=== PATIENT | female | born 1970 | race Caucasian/White ===

== ENCOUNTER 2016-10-14 06:46 | Emergency (ER) | payer OTHER ==
[~2016-10-14 06:46] MED LIST: AMBIEN5 MG PO; COZAAR25 MG PO; FLUOXETINE HCL20 MG PO; GLUCOSAMINE500 M1 PO; HYDROCHLOROTH12.5 MG PO; IRON325 MG PO; MAGNESIUM400 M1 PO; NORCO1 TA1 PO; SIMVASTATIN20 MG PO; VALTREX500 MG PO
--- NOTE | 2016-10-14 08:02 | DIAGNOSTIC IMAGING REPORT ---
PROCEDURE: XR HIP 2VW W W/O AP PELVIS-LT INDICATION: PAIN IN JOINT TECHNIQUE: AP view of the pelvis and hips with lateral view of the left hip. COMPARISON: None. FINDINGS: LEFT HIP: No fracture or dislocation. Normal joint space. PELVIS: Mild right hip joint space narrowing. No suspicious osseous lesions. Soft tissues are unremarkable IMPRESSION: 1. Negative left hip 2. Mild right hip degenerative changes
--- NOTE | 2016-10-14 08:30 | ED NURSING NOTES ---
Clinical Report - Nurses [facility] [place] [address] 10/14/2016 6:49 Patient: UGO NIXON TRIAGE Triage time 06:59 Oct 14 2016. Acuity: LEVEL 3. Chief Complaint: LEFT LOWER EXTREMITY PAIN. Location of symptoms- left hip. 07:05 10/14/16. SEPSIS SCREEN: Sepsis Screen: negative. Negative (no infection suspected/documented). NICHELLE COMA SCORE: Nichelle Coma Scale: 15- eyes open spontaneously (4); best verbal response- oriented x 4 (5); best motor response- obeys commands (6). --07:05 Ely Macias 06:59 10/14/16. BP: 146/91. HR: 77. RR: 20. O2 saturation: 98% on room air. Pain level now: 05/18. --07:05 Ely Macias. Weight: 65.7 kg stated. Height/Length: 62 inches Per Patient. BMI: 26.5. --07:03 Ely Macias. Medications Losartan Potassium Oral. --07:02 Ely Macias FLUoxetine HCl Oral. --07:02 Ely Macias Elmethylpholate . --07:02 Ely Macias Valclocyclovir . --07:03 Ely Macias. Medication/allergy information source: the patient. --07:05 Ely Macias. Allergies No Known Drug Allergy. --07:02 Ely Macias. History Arrived by private vehicle. Historian: patient. Accompanied by family. Primary physician (iraj mendoza). An injury may have occurred. This occurred today. ( Patient states she woke from sleep with sharp pain in her left hip. She states she had some pain in that hip in the past but this is new pain.). 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 PAST MEDICAL HX: Immunizations: up-to-date. The patient has had a hysterectomy. SOCIAL HX: Never smoker. Occasional alcohol use. History of drug use: marijuana. No infectious disease exposure. ABUSE ASSESSMENT: No report of abuse. FALL RISK ASSESSMENT: Fall risk assessment completed. No fall risk identified. NUTRITIONAL RISK ASSESSMENT: The nutritional risk assessment revealed no deficiencies. FUNCTIONAL ASSESSMENT: Functional assessment: no impairments noted. LEARNING NEEDS ASSESSMENT: The learning needs assessment revealed no barriers. SKIN INTEGRITY ASSESSMENT: Skin integrity risk assessment completed. No skin integrity risk identified. --07:05 Ely Macias. PROBLEMS: Anxiety disorder. Depression. Hyperlipidemia. Hypertension. --07:03 Ely Macias. ADDITIONAL SURGERIES: Appendectomy. . Hysterectomy. Laparoscopy. --07:03 Ely Macias. Interventions ID band on patient. To treatment room. --07: Ely Macias. PHYSICAL ASSESSMENT 07:10/14/16. To room via wheelchair. GENERAL / NEURO / PSYCH: Oriented X 4. Alert. Appears in no acute distress. EXTREMITIES: Extremity pulses are within normal limits. No lower extremity edema. SKIN: Skin is warm and dry. --07:05 Ely Macias EXTREMITIES: Limited ROM present (in left hip due to pain). No lower extremity edema. SKIN: Skin intact. Skin is warm and dry. --07:06 Ely Macias. NURSING PROGRESS NOTES 07:10/14/16. Cold pack applied. Patient gowned. Warming measures: blanket applied. Reassurance given to the patient. Two patient identifiers checked. Call light placed in reach. Side rails up x 1. Bed placed in lowest position. Brakes of bed on. Patient ready for evaluation- chart flagged. --07:06 Ely Macias 07:10/14/16. Care transferred and report received. --07:07 Roshni Hartmann R.N. 07:25 10/14/2016 Toradol (Ketorolac Tromethamine) IM 60 mg given. Allergies verified and confirmed 5 rights. --07:25 Roshni Hartmann R.N. 08:17 10/14/2016 Carisoprodol PO 350 mg given. Confirmed 5 rights and sedative warning given to the patient and patient's family. --08:17 Roshni Hartmann R.N. DISPOSITION / DISCHARGE Departure time: 0836. Condition at departure: improved. No learning barriers present. Discharge instructions provided and reviewed with the patient and spouse. Reviewed medication(s) information. Prescription(s) given to the patient. Reviewed referral to family practice for followup. The patient was discharged home and accompanied by spouse. She left the Emergency Department ambulatory and via private vehicle. Spouse driving. FALL RISK ASSESSMENT: Fall risk assessment completed. No fall risk identified. --08:39 Roshni Hartmann R.N. 08:35 10/14/16. BP: 145/82. HR: 66. RR: 18. O2 saturation: 99%. Temp: deferred. Pain level now: 02/15. --08:39 Roshni Hartmann R.N. Locked/Released at 10/14/2016 8:40 by Roshni Hartmann R.N.
--- NOTE | 2016-10-14 08:30 | ED NURSING NOTES ---
Clinical Report - Nurses [facility] [place] [address] 10/14/2016 6:49 Patient: UGO NIXON TRIAGE Triage time 06:59 Oct 14 2016. Acuity: LEVEL 3. Chief Complaint: LEFT LOWER EXTREMITY PAIN. Location of symptoms- left hip. 07:05 10/14/16. SEPSIS SCREEN: Sepsis Screen: negative. Negative (no infection suspected/documented). NICHELLE COMA SCORE: Nichelle Coma Scale: 15- eyes open spontaneously (4); best verbal response- oriented x 4 (5); best motor response- obeys commands (6). --07:05 Ely Macias 06:59 10/14/16. BP: 146/91. HR: 77. RR: 20. O2 saturation: 98% on room air. Pain level now: 05/18. --07:05 Ely Macias. Weight: 65.7 kg stated. Height/Length: 62 inches Per Patient. BMI: 26.5. --07:03 Ely Macias. Medications Losartan Potassium Oral. --07:02 Ely Macias FLUoxetine HCl Oral. --07:02 Ely Macias Elmethylpholate . --07:02 Ely Macias Valclocyclovir . --07:03 Ely Macias. Medication/allergy information source: the patient. --07:05 Ely Macias. Allergies No Known Drug Allergy. --07:02 Ely Macias. History Arrived by private vehicle. Historian: patient. Accompanied by family. Primary physician (iraj mendoza). An injury may have occurred. This occurred today. ( Patient states she woke from sleep with sharp pain in her left hip. She states she had some pain in that hip in the past but this is new pain.). 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 PAST MEDICAL HX: Immunizations: up-to-date. The patient has had a hysterectomy. SOCIAL HX: Never smoker. Occasional alcohol use. History of drug use: marijuana. No infectious disease exposure. ABUSE ASSESSMENT: No report of abuse. FALL RISK ASSESSMENT: Fall risk assessment completed. No fall risk identified. NUTRITIONAL RISK ASSESSMENT: The nutritional risk assessment revealed no deficiencies. FUNCTIONAL ASSESSMENT: Functional assessment: no impairments noted. LEARNING NEEDS ASSESSMENT: The learning needs assessment revealed no barriers. SKIN INTEGRITY ASSESSMENT: Skin integrity risk assessment completed. No skin integrity risk identified. --07:05 Ely Macias. PROBLEMS: Anxiety disorder. Depression. Hyperlipidemia. Hypertension. --07:03 Ely Macias. ADDITIONAL SURGERIES: Appendectomy. . Hysterectomy. Laparoscopy. --07:03 Ely Macias. Interventions ID band on patient. To treatment room. --07: Ely Macias. PHYSICAL ASSESSMENT 07:10/14/16. To room via wheelchair. GENERAL / NEURO / PSYCH: Oriented X 4. Alert. Appears in no acute distress. EXTREMITIES: Extremity pulses are within normal limits. No lower extremity edema. SKIN: Skin is warm and dry. --07:05 Ely Macias EXTREMITIES: Limited ROM present (in left hip due to pain). No lower extremity edema. SKIN: Skin intact. Skin is warm and dry. --07:06 Ely Macias. NURSING PROGRESS NOTES 07:10/14/16. Cold pack applied. Patient gowned. Warming measures: blanket applied. Reassurance given to the patient. Two patient identifiers checked. Call light placed in reach. Side rails up x 1. Bed placed in lowest position. Brakes of bed on. Patient ready for evaluation- chart flagged. --07:06 Ely Macias 07:10/14/16. Care transferred and report received. --07:07 Roshni Hartmann R.N. 07:25 10/14/2016 Toradol (Ketorolac Tromethamine) IM 60 mg given. Allergies verified and confirmed 5 rights. --07:25 Roshni Hartmann R.N. 08:17 10/14/2016 Carisoprodol PO 350 mg given. Confirmed 5 rights and sedative warning given to the patient and patient's family. --08:17 Roshni Hartmann R.N. DISPOSITION / DISCHARGE Departure time: 0836. Condition at departure: improved. No learning barriers present. Discharge instructions provided and reviewed with the patient and spouse. Reviewed medication(s) information. Prescription(s) given to the patient. Reviewed referral to family practice for followup. The patient was discharged home and accompanied by spouse. She left the Emergency Department ambulatory and via private vehicle. Spouse driving. FALL RISK ASSESSMENT: Fall risk assessment completed. No fall risk identified. --08:39 Roshni Hartmann R.N. 08:35 10/14/16. BP: 145/82. HR: 66. RR: 18. O2 saturation: 99%. Temp: deferred. Pain level now: 02/15. --08:39 Roshni Hartmann R.N. Locked/Released at 10/14/2016 8:40 by Roshni Hartmann R.N.
--- NOTE | 2016-10-14 08:30 | ED ORDER SUMMARY ---
..... Patient: UGO NIXON OrderSheet [facility] VisitID: [id number] [place] [address] 46y, F Registration Date/Time: 10/14/2016 ORDER SHEET Weight: 65.7 kg (stated) Allergies: No Known Drug Allergy GENERAL ORDERS: Hip 2V Left w AP Pelvis Urgent (07:05 10/14/2016 Marilee ALSTON) (Ack 7:06 Rahel) (7:25 LSullivan R.N.) MEDICATION ORDERS: Toradol IM 60 mg (NOW) (07:04 10/14/2016 Marilee ALTSON) (Ack 7:06 Han) (7:25 LSullivan R.N.) Carisoprodol PO 350 mg (NOW) (08:17 10/14/2016 LSullivan R.N. verbal order read back to Marilee ALSTON) (8:17 LSullivan R.N.) IV FLUIDS: ORDER SHEET NOTES: [Electronically signed by Roshni Hartmann R.N. (08:40 10/14/2016)] [Electronically signed by Foster Brown MD (20:43 10/16/2016)] [Electronically locked/signed by Roshni Hartmann R.N. (08:40 10/14/2016)]
--- NOTE | 2016-10-14 08:30 | ED ORDER SUMMARY ---
..... Patient: UGO NIXON OrderSheet [facility] VisitID: [id number] [place] [address] 46y, F Registration Date/Time: 10/14/2016 ORDER SHEET Weight: 65.7 kg (stated) Allergies: No Known Drug Allergy GENERAL ORDERS: Hip 2V Left w AP Pelvis Urgent (07:05 10/14/2016 Marilee ALSTON) (Ack 7:06 Rahel) (7:25 LSullivan R.N.) MEDICATION ORDERS: Toradol IM 60 mg (NOW) (07:04 10/14/2016 Marilee ALSTON) (Ack 7:06 Han) (7:25 LSullivan R.N.) Carisoprodol PO 350 mg (NOW) (08:17 10/14/2016 LSullivan R.N. verbal order read back to Marilee ALSTON) (8:17 LSullivan R.N.) IV FLUIDS: ORDER SHEET NOTES: [Electronically signed by Roshni Hartmann R.N. (08:40 10/14/2016)] [Electronically signed by Foster Brown MD (20:43 10/16/2016)] [Electronically locked/signed by Roshni Hartmann R.N. (08:40 10/14/2016)]
--- NOTE | 2016-10-14 08:30 | ED CLINICAL REPORT ---
Clinical Report - Physicians/Mid Levels [facility] [address] [place] [address] 10/14/2016 6:49 Patient: UGO NIXON Time Seen: 07:03 Oct 14 2016. Arrived- By private vehicle. Historian- patient and family. CPT: ER phys charges level 3 (#[id number]). HISTORY OF PRESENT ILLNESS Chief Complaint: LEFT HIP INJURY. The injury occurred yesterday. Fell down a few stairs while walking; slipped. Occurred at home. The patient complains of moderate pain. No blow to the head, neck pain or loss of consciousness. (Did not fall to ground.). REVIEW OF SYSTEMS Lost 40 lbs due to a lot of walking. Both hips started to hurt but the left was made worse when she slipped on the stairs. Pain 8/10. PAST HISTORY See nurses notes. hysterectomy. Anxiety disorder. Depression. Hyperlipidemia. Hypertension. ADDITIONAL SURGERIES: Appendectomy. . Hysterectomy. Laparoscopy. Medications: Valclocyclovir . Elmethylpholate . FLUoxetine HCl Oral. Losartan Potassium Oral. Allergies: No Known Drug Allergy. SOCIAL HISTORY Occasional alcohol use. ADDITIONAL NOTES The nursing notes have been reviewed. PHYSICAL EXAM Vital Signs: 10/14/2016 06:59 BP: 146/91. HR: 77. RR: 20. O2 saturation: 98%. Pain level now: 8/10. Appearance: Alert. Patient in moderate distress. Neck: Painless ROM. Non-tender. CVS: Heart sounds normal. Pulses normal. Respiratory: Breath sounds normal. Abdomen: Nontender. Back: No tenderness. ROM normal. Skin: Skin intact. Skin warm. Normal skin color. Extremities: Pelvis stable. Left hip: moderate tenderness located in the lateral aspect of the hip. Limited ROM (diminished external and internal rotation). Neurovascular intact distally. No swelling, laceration, abrasion, ecchymosis or deformity. Neuro: Oriented X 3. No motor deficit. No sensory deficit. Reflexes normal. LABS, X-RAYS, AND EKG X-Rays: Pelvis negative. Left hip negative. PROGRESS AND PROCEDURES Course of Care: Toradol 60 mg IM Soma 1 po Patient is stable. Symptoms much better. Patient/family counseled. Disposition: Discharged. Condition: stable. CLINICAL IMPRESSION Left hip strain Mild DJD both hips. INSTRUCTIONS Apply moist heat for 15-20 minutes three times a day for one weeks until better. You may walk and bear weight as tolerated. Warnings: SEDATIVE MEDICATION: You were given sedative medication during your visit. Do not drive or operate dangerous machinery. GENERAL WARNINGS: Return or contact your physician immediately if your condition worsens or changes unexpectedly, if not improving as expected, or if other problems arise. Prescription Medications: Hydrocodone/APAP 5mg/325mg: take 1 to 2 orally every 6 hours as needed for pain. Dispense fifteen (15). No refills. Ibuprofen 600mg tablets: take 1 tablet orally every 8 hours as needed for pain. Dispense thirty (30). No refills. Flexeril 5 mg: take 1 orally every 8 hours as needed for muscle spasm or pain. Dispense fifteen (15). No refills. Substitution is permissible. Follow-up: Follow up with your doctor in one week. Call for an appointment. (Electronically signed by Foster Brown MD 10/16/2016 20:43)
--- NOTE | 2016-10-14 08:30 | ED CLINICAL REPORT ---
Clinical Report - Physicians/Mid Levels [facility] [address] [place] [address] 10/14/2016 6:49 Patient: UGO NIXON Time Seen: 07:03 Oct 14 2016. Arrived- By private vehicle. Historian- patient and family. CPT: ER phys charges level 3 (#[id number]). HISTORY OF PRESENT ILLNESS Chief Complaint: LEFT HIP INJURY. The injury occurred yesterday. Fell down a few stairs while walking; slipped. Occurred at home. The patient complains of moderate pain. No blow to the head, neck pain or loss of consciousness. (Did not fall to ground.). REVIEW OF SYSTEMS Lost 40 lbs due to a lot of walking. Both hips started to hurt but the left was made worse when she slipped on the stairs. Pain 8/10. PAST HISTORY See nurses notes. hysterectomy. Anxiety disorder. Depression. Hyperlipidemia. Hypertension. ADDITIONAL SURGERIES: Appendectomy. . Hysterectomy. Laparoscopy. Medications: Valclocyclovir . Elmethylpholate . FLUoxetine HCl Oral. Losartan Potassium Oral. Allergies: No Known Drug Allergy. SOCIAL HISTORY Occasional alcohol use. ADDITIONAL NOTES The nursing notes have been reviewed. PHYSICAL EXAM Vital Signs: 10/14/2016 06:59 BP: 146/91. HR: 77. RR: 20. O2 saturation: 98%. Pain level now: 8/10. Appearance: Alert. Patient in moderate distress. Neck: Painless ROM. Non-tender. CVS: Heart sounds normal. Pulses normal. Respiratory: Breath sounds normal. Abdomen: Nontender. Back: No tenderness. ROM normal. Skin: Skin intact. Skin warm. Normal skin color. Extremities: Pelvis stable. Left hip: moderate tenderness located in the lateral aspect of the hip. Limited ROM (diminished external and internal rotation). Neurovascular intact distally. No swelling, laceration, abrasion, ecchymosis or deformity. Neuro: Oriented X 3. No motor deficit. No sensory deficit. Reflexes normal. LABS, X-RAYS, AND EKG X-Rays: Pelvis negative. Left hip negative. PROGRESS AND PROCEDURES Course of Care: Toradol 60 mg IM Soma 1 po Patient is stable. Symptoms much better. Patient/family counseled. Disposition: Discharged. Condition: stable. CLINICAL IMPRESSION Left hip strain Mild DJD both hips. INSTRUCTIONS Apply moist heat for 15-20 minutes three times a day for one weeks until better. You may walk and bear weight as tolerated. Warnings: SEDATIVE MEDICATION: You were given sedative medication during your visit. Do not drive or operate dangerous machinery. GENERAL WARNINGS: Return or contact your physician immediately if your condition worsens or changes unexpectedly, if not improving as expected, or if other problems arise. Prescription Medications: Hydrocodone/APAP 5mg/325mg: take 1 to 2 orally every 6 hours as needed for pain. Dispense fifteen (15). No refills. Ibuprofen 600mg tablets: take 1 tablet orally every 8 hours as needed for pain. Dispense thirty (30). No refills. Flexeril 5 mg: take 1 orally every 8 hours as needed for muscle spasm or pain. Dispense fifteen (15). No refills. Substitution is permissible. Follow-up: Follow up with your doctor in one week. Call for an appointment. (Electronically signed by Foster Brown MD 10/16/2016 20:43)
--- NOTE | 2016-10-16 20:43 | ED MED RECONCILIATION SUMMARY ---
Patient: UGO NIXON Medication Reconciliation Report [facility] VisitID: [id number] [address] [place] [address] 46y, F Registration Date/Time: 10/14/2016 Weight: 65.7 kg Height/Length: 62 in. BMI: 26.5 ALLERGIES: No Known Drug Allergy The patient's Home Medications are listed below: THE FOLLOWING MEDICATIONS NEED TO BE RECONCILED: Elmethylpholate FLUoxetine HCl Oral Losartan Potassium Oral Valclocyclovir The source(s) of the original Home Medication information: patient The following Medications were given to the patient in the Emergency Department: Toradol [IM] IM 60 mg, administered: 10/14/2016 7:25:00 AM Carisoprodol [PO] PO 350 mg, administered: 10/14/2016 8:17:00 AM The following Medications were prescribed to the patient: Hydrocodone/APAP 5mg/325mg: take 1 to 2 orally every 6 hours as needed for pain. Dispense fifteen (15). No refills. -- Foster Brown MD Ibuprofen 600mg tablets: take 1 tablet orally every 8 hours as needed for pain. Dispense thirty (30). No refills. -- Foster Brown MD Flexeril 5 mg: take 1 orally every 8 hours as needed for muscle spasm or pain. Dispense fifteen (15). No refills. Substitution is permissible. -- Foster Brown MD
--- NOTE | 2016-10-16 20:43 | ED DISCHARGE INSTRUCTIONS ---
Patient: UGO NIXON General Instructions [facility] VisitID: [id number] [place] [address] 46y, F Registration Date/Time: 10/14/2016 Left hip strain Mild DJD both hips. INSTRUCTIONS Apply moist heat for 15-20 minutes three times a day for one weeks until better. You may walk and bear weight as tolerated. Warnings: SEDATIVE MEDICATION: You were given sedative medication during your visit. Do not drive or operate dangerous machinery. GENERAL WARNINGS: Return or contact your physician immediately if your condition worsens or changes unexpectedly, if not improving as expected, or if other problems arise. Prescription Medications: Hydrocodone/APAP 5mg/325mg: take 1 to 2 orally every 6 hours as needed for pain. Dispense fifteen (15). No refills. Ibuprofen 600mg tablets: take 1 tablet orally every 8 hours as needed for pain. Dispense thirty (30). No refills. Flexeril 5 mg: take 1 orally every 8 hours as needed for muscle spasm or pain. Dispense fifteen (15). No refills. Substitution is permissible. Follow-up: Follow up with your doctor in one week. Call for an appointment. ADDITIONAL INFORMATION Cyclobenzaprine Hydrochloride Oral tablet What is this medicine? CYCLOBENZAPRINE (suzanne bird) is a muscle relaxer. It is used to treat muscle pain, spasms, and stiffness. How should I use this medicine? Take this medicine by mouth with a glass of water. Follow the directions on the prescription label. If this medicine upsets your stomach, take it with food or milk. Take your medicine at regular intervals. Do not take it more often than directed. Talk to your log handling equipment operator regarding the use of this medicine in children. Special care may be needed. What side effects may I notice from receiving this medicine? Side effects that you should report to your doctor or health residential care facility manager as soon as possible: allergic reactions like skin rash, itching or hives, swelling of the face, lips, or tongue chest pain fast heartbeat hallucinations seizures vomiting Side effects that usually do not require medical attention (report to your doctor or health residential care facility manager if they continue or are bothersome): headache What may interact with this medicine? Do not take this medicine with any of the following medications: cisapride droperidol flecainide grepafloxacin halofantrine levomethadyl MAOIs like Carbex, Eldepryl, Marplan, Nardil, and Parnate nilotinib pimozide probucol sertindole This medicine may also interact with the following medications: abarelix alcohol contrast dyes dolasetron guanethidine medicines for cancer medicines for depression, anxiety, or psychotic disturbances medicines to treat an irregular heartbeat medicines used for sleep or numbness during surgery or procedure methadone octreotide ondansetron palonosetron phenothiazines like chlorpromazine, mesoridazine, prochlorperazine, thioridazine some medicines for infection like alfuzosin, chloroquine, clarithromycin, levofloxacin, mefloquine, pentamidine, troleandomycin tramadol vardenafil What if I miss a dose? If you miss a dose, take it as soon as you can. If it is almost time for your next dose, take only that dose. Do not take double or extra doses. Where should I keep my medicine? Keep out of the reach of children. Store at room temperature between 15 and 30 degrees C (59 and 86 degrees F). Keep container tightly closed. Throw away any unused medicine after the expiration date. What should I tell my health care provider before I take this medicine? They need to know if you have any of these conditions: heart disease, irregular heartbeat, or previous heart attack liver disease thyroid problem an unusual or allergic reaction to cyclobenzaprine, tricyclic antidepressants, lactose, other medicines, foods, dyes, or preservatives or trying to get breast-feeding What should I watch for while using this medicine? Check with your doctor or health residential care facility manager if your condition does not improve within 1 to 3 weeks. You may get drowsy or dizzy when you first start taking the medicine or change doses. Do not drive, use machinery, or do anything that may be dangerous until you know how the medicine affects you. Stand or sit up slowly. Your mouth may get dry. Drinking water, chewing sugarless gum, or sucking on hard candy may help. You have been given the following additional information: Cyclobenzaprine Hydrochloride Oral tablet You may walk and bear weight as tolerated. (Electronically signed by Foster Brown MD 10/16/2016 20:43)
--- NOTE | 2016-10-16 20:43 | ED MAR SUMMARY ---
..... Medication Administration Record [facility] [address] [place] [address] Patient: UGO NIXON Visit ID: [id number] 46y, F Weight: 65.7 kg Height/Length: 62 in BMI: 26.5 ALLERGIES: No Known Drug Allergy Given 07:25 10/14/2016 Roshni Hartmann RDonnyNDonny Medication Administered: TORADOL [IM] (KETOROLAC TROMETHAMINE), Dose: 60 mg IM. Medication Ordered: Toradol IM 60 mg (NOW). Given 08:17 10/14/2016 Roshni Hartmann, RDonnyN. Medication Administered: CARISOPRODOL [PO], Dose: 350 mg PO. Medication Ordered: Carisoprodol PO 350 mg (NOW).
--- NOTE | 2016-10-16 20:43 | ED DISCHARGE INSTRUCTIONS ---
Patient: UGO NIXON General Instructions [facility] VisitID: [id number] [place] [address] 46y, F Registration Date/Time: 10/14/2016 Left hip strain Mild DJD both hips. INSTRUCTIONS Apply moist heat for 15-20 minutes three times a day for one weeks until better. You may walk and bear weight as tolerated. Warnings: SEDATIVE MEDICATION: You were given sedative medication during your visit. Do not drive or operate dangerous machinery. GENERAL WARNINGS: Return or contact your physician immediately if your condition worsens or changes unexpectedly, if not improving as expected, or if other problems arise. Prescription Medications: Hydrocodone/APAP 5mg/325mg: take 1 to 2 orally every 6 hours as needed for pain. Dispense fifteen (15). No refills. Ibuprofen 600mg tablets: take 1 tablet orally every 8 hours as needed for pain. Dispense thirty (30). No refills. Flexeril 5 mg: take 1 orally every 8 hours as needed for muscle spasm or pain. Dispense fifteen (15). No refills. Substitution is permissible. Follow-up: Follow up with your doctor in one week. Call for an appointment. ADDITIONAL INFORMATION Cyclobenzaprine Hydrochloride Oral tablet What is this medicine? CYCLOBENZAPRINE (suzanne bird) is a muscle relaxer. It is used to treat muscle pain, spasms, and stiffness. How should I use this medicine? Take this medicine by mouth with a glass of water. Follow the directions on the prescription label. If this medicine upsets your stomach, take it with food or milk. Take your medicine at regular intervals. Do not take it more often than directed. Talk to your pipe fitter maintenance regarding the use of this medicine in children. Special care may be needed. What side effects may I notice from receiving this medicine? Side effects that you should report to your doctor or health health care coordinator as soon as possible: allergic reactions like skin rash, itching or hives, swelling of the face, lips, or tongue chest pain fast heartbeat hallucinations seizures vomiting Side effects that usually do not require medical attention (report to your doctor or health health care coordinator if they continue or are bothersome): headache What may interact with this medicine? Do not take this medicine with any of the following medications: cisapride droperidol flecainide grepafloxacin halofantrine levomethadyl MAOIs like Carbex, Eldepryl, Marplan, Nardil, and Parnate nilotinib pimozide probucol sertindole This medicine may also interact with the following medications: abarelix alcohol contrast dyes dolasetron guanethidine medicines for cancer medicines for depression, anxiety, or psychotic disturbances medicines to treat an irregular heartbeat medicines used for sleep or numbness during surgery or procedure methadone octreotide ondansetron palonosetron phenothiazines like chlorpromazine, mesoridazine, prochlorperazine, thioridazine some medicines for infection like alfuzosin, chloroquine, clarithromycin, levofloxacin, mefloquine, pentamidine, troleandomycin tramadol vardenafil What if I miss a dose? If you miss a dose, take it as soon as you can. If it is almost time for your next dose, take only that dose. Do not take double or extra doses. Where should I keep my medicine? Keep out of the reach of children. Store at room temperature between 15 and 30 degrees C (59 and 86 degrees F). Keep container tightly closed. Throw away any unused medicine after the expiration date. What should I tell my health care provider before I take this medicine? They need to know if you have any of these conditions: heart disease, irregular heartbeat, or previous heart attack liver disease thyroid problem an unusual or allergic reaction to cyclobenzaprine, tricyclic antidepressants, lactose, other medicines, foods, dyes, or preservatives or trying to get breast-feeding What should I watch for while using this medicine? Check with your doctor or health health care coordinator if your condition does not improve within 1 to 3 weeks. You may get drowsy or dizzy when you first start taking the medicine or change doses. Do not drive, use machinery, or do anything that may be dangerous until you know how the medicine affects you. Stand or sit up slowly. Your mouth may get dry. Drinking water, chewing sugarless gum, or sucking on hard candy may help. You have been given the following additional information: Cyclobenzaprine Hydrochloride Oral tablet You may walk and bear weight as tolerated. (Electronically signed by Foster Brown MD 10/16/2016 20:43)
--- NOTE | 2016-10-16 20:43 | ED MED RECONCILIATION SUMMARY ---
Patient: UGO NIXON Medication Reconciliation Report [facility] VisitID: [id number] [address] [place] [address] 46y, F Registration Date/Time: 10/14/2016 Weight: 65.7 kg Height/Length: 62 in. BMI: 26.5 ALLERGIES: No Known Drug Allergy The patient's Home Medications are listed below: THE FOLLOWING MEDICATIONS NEED TO BE RECONCILED: Elmethylpholate FLUoxetine HCl Oral Losartan Potassium Oral Valclocyclovir The source(s) of the original Home Medication information: patient The following Medications were given to the patient in the Emergency Department: Toradol [IM] IM 60 mg, administered: 10/14/2016 7:25:00 AM Carisoprodol [PO] PO 350 mg, administered: 10/14/2016 8:17:00 AM The following Medications were prescribed to the patient: Hydrocodone/APAP 5mg/325mg: take 1 to 2 orally every 6 hours as needed for pain. Dispense fifteen (15). No refills. -- Foster Brown MD Ibuprofen 600mg tablets: take 1 tablet orally every 8 hours as needed for pain. Dispense thirty (30). No refills. -- Foster Brown MD Flexeril 5 mg: take 1 orally every 8 hours as needed for muscle spasm or pain. Dispense fifteen (15). No refills. Substitution is permissible. -- Foster Brown MD
--- NOTE | 2016-10-16 20:43 | ED MAR SUMMARY ---
..... Medication Administration Record [address] [place] [address] Patient: UGO NIXON Visit ID: [id number] 46y, F Weight: 65.7 kg Height/Length: 62 in BMI: 26.5 ALLERGIES: No Known Drug Allergy Given 07:25 10/14/2016 Roshni Hartmann RDonnyNDonny Medication Administered: TORADOL [IM] (KETOROLAC TROMETHAMINE), Dose: 60 mg IM. Medication Ordered: Toradol IM 60 mg (NOW). Given 08:17 10/14/2016 Roshni Hartmann, RDonnyN. Medication Administered: CARISOPRODOL [PO], Dose: 350 mg PO. Medication Ordered: Carisoprodol PO 350 mg (NOW).
== END 2016-10-14 08:36 | disposition home or self-care (01) ==
LOC: ED SRH 06:46
DX: S76.012A Strain of muscle, fascia and tendon of left hip, initial encounter (principal); M16.0 Bilateral primary osteoarthritis of hip; W10.8XXA Fall (on) (from) other stairs and steps, initial encounter; Y93.01 Activity, walking, marching and hiking; Y92.009 Unspecified place in unspecified non-institutional (private) residence as the place of occurrence of the external cause; Y99.8 Other external cause status; I10 Essential (primary) hypertension; E78.5 Hyperlipidemia, unspecified; Z79.899 Other long term (current) drug therapy

== ENCOUNTER 2016-10-26 12:56 | Emergency (ER) | payer OTHER ==
--- NOTE | 2016-10-26 13:35 | ED NURSING NOTES ---
Clinical Report - Nurses [facility] [address] [place] [address] 10/26/2016 13:00 Patient: UGO NIXON TRIAGE Triage time 13:Oct 26 2016. Acuity: LEVEL 3. Chief Complaint: (numb feeling on right side of face). 13:05 10/26/16. NICHELLE COMA SCORE: Nichelle Coma Scale: 15- eyes open spontaneously (4); best verbal response- oriented x 4 (5); best motor response- obeys commands (6). --13:16 Marcy Perez R.N. 13:08 10/26/16. BP: 160/95. HR: 61. RR: 18. O2 saturation: 98%. Temp: 98.4 F (oral). Pain level now: 0/10. --13:16 Marcy Perez R.N. Weight: 65.7 kg stated. Height/Length: 62 inches Per Patient. BMI: 26.5. --13:05 Marcy Perez R.N. Medications Losartan Potassium Oral (Tablet 25 mg) 1/2 tablet, daily. --13:11 Marcy Perez R.N. FLUoxetine HCl Oral. --13:11 Marcy Perez R.N. L-methylfolate Calcium Oral. --13:11 Marcy Perez R.N. ValACYclovir HCl Oral. --13:11 Marcy Perez R.N. Allergies No Known Drug Allergy. --13:12 Marcy Perez R.N. Medication/allergy information source: the patient. --13:16 Marcy Perez R.N. History Arrived by private vehicle. Historian: patient. Accompanied by family. This started last night. Onset. (states had twitching in right eye last night, today woke with a tingling numb feeling on the right side of her face.). ( She describes this as on the inside of her face. Feels almost like when novocaine is wearing off). No fever, weakness, cough, difficulty breathing or skin rash. Denies muscle aches. 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 PAST MEDICAL HX: Has not received seasonal influenza immunization. SOCIAL HX: Never smoker. Occasional alcohol use. History of drug use: marijuana. No infectious disease exposure. ABUSE ASSESSMENT: No report of abuse. SELF HARM ASSESSMENT: A self harm assessment was performed. The patient answered "no" to the question "Have you recently felt down, depressed, or hopeless?", "Have you noticed less interest or pleasure in doing things?", "Do you have thoughts of harming or killing yourself?", "Are you here because you tried to hurt yourself?", "Have you ever tried to hurt yourself before today?", "Have you recently had thoughts about harming or killing others?" and "Do you have any dangerous items in your possession?". FALL RISK ASSESSMENT: Fall risk assessment completed. No fall risk identified. NUTRITIONAL RISK ASSESSMENT: The nutritional risk assessment revealed no deficiencies. FUNCTIONAL ASSESSMENT: Functional assessment: no impairments noted. LEARNING NEEDS ASSESSMENT: The learning needs assessment revealed no barriers. SKIN INTEGRITY ASSESSMENT: Skin integrity risk assessment completed. No skin integrity risk identified. --13:16 Marcy Perez R.N. PROBLEMS: Genital herpes. Anxiety disorder. Depression. Hyperlipidemia. Hypertension. --13:13 Marcy Perez R.N. ADDITIONAL SURGERIES: Appendectomy. . Hysterectomy. Laparoscopy. --13:13 Marcy Perez R.N. Interventions ID band on patient. --13:16 Marcy Perez R.N. PHYSICAL ASSESSMENT 13:05 10/26/16. Ambulatory to room. GENERAL / NEURO / PSYCH: Alert. Oriented X 4. Appears in no acute distress. HEENT: Pupils equal, round and reactive to light. No facial asymmetry noted. Mucous membranes are pink. RESPIRATORY: Respirations not labored. Chest nontender. Breath sounds within normal limits. CVS: Capillary refill less than 2 seconds. Pulses within normal limits. GI / : Abdomen soft and nontender and normal bowel sounds. SKIN: Skin intact. Skin is warm and dry. Normal skin turgor. --13:22 Marcy Perez R.N. NURSING PROGRESS NOTES 13:05 10/26/16. The initial plan of care for this patient includes an assessment with efforts to address the patient's anxiety; impairment of the neurological and integumentary system. This plan of care was discussed with the patient and spouse. Patient gowned. Reassurance given to the patient and patient's family. Two patient identifiers checked. Call light placed in reach. Side rails up x 1. Bed placed in lowest position. Brakes of bed on. Patient ready for evaluation. --13:18 Marcy Perez R.N. DISPOSITION / DISCHARGE 13:40 10/26/16. Condition at departure: unchanged and stable. The goals identified in the patient's plan of care were met. No learning barriers present. Discharge instructions provided and reviewed with the patient. Reviewed referral to a primary care physician for followup. Patient and spouse verbalized understanding. Written instructions provided in Icelandic. The patient was discharged home and accompanied by spouse. She left the Emergency Department ambulatory and via private vehicle. Patient driving. FALL RISK ASSESSMENT: Fall risk assessment completed. No fall risk identified. --13:41 Marcy Perez R.N. Departure time: 13:40 Oct 26 2016. --13:41 Marcy Perez R.N. 13:40 10/26/16. --13:41 Marcy Perez R.N. 13:08 10/26/16. BP: 160/95. HR: 61. RR: 18. O2 saturation: 98%. Temp: 98.4 F (oral). Pain level now: 0/10. --13:41 Marcy Perez R.N. Locked/Released at 10/26/2016 13:41 by Marcy Perez R.N.
--- NOTE | 2016-10-26 13:35 | ED CLINICAL REPORT ---
Clinical Report - Physicians/Mid Levels [facility] [address] [place] [address] 10/26/2016 13:00 Patient: UGO NIXON Time Seen: 14:13 Oct 26 2016. Arrived- By private vehicle. Historian- patient. HISTORY OF PRESENT ILLNESS Is still present. Chief Complaint: paresthesias. This started just prior to arrival. Located in the right maxillary region. The patient has had numbness. No preceding symptoms, blurred vision, photophobia or vomiting. (Patient reports developing paresthesias to the right mouth, first noticing when her just her this morning as he was leaving for work at home. Reports she had no pain at the time, however when she cut her face there was a different sensation to her cheek bone area on the right side versus left. She reports such as persisted. Denies any difficulty swallowing, has had a dull headache very unspecific since this morning, largely resolved now. Denies any neck pain, fevers denies any emesis. Reports taking Benadryl prior to arrival for this. Denies history of shingles. Denies h/o tia/stroke. Denies any injury. Denies any recent dental work or antibiotics, or new medications.. Denies noticing a rash to the area.). REVIEW OF SYSTEMS No fever, sinus pressure, ear pain, sore throat or chest pain. No cough, abdominal pain or pain with urination. All systems otherwise negative, except as recorded above. PAST HISTORY Problems: Genital herpes. Anxiety disorder. Depression. Hyperlipidemia. Hypertension. Additional Surgeries: Appendectomy. . Hysterectomy. Laparoscopy. Medications: ValACYclovir HCl Oral. L-methylfolate Calcium Oral. FLUoxetine HCl Oral. Losartan Potassium Oral (Tablet 25 mg) 1/2 tablet, daily. Allergies: No Known Drug Allergy. SOCIAL HISTORY Never smoker. Alcohol use. History of drug use: marijuana. ADDITIONAL NOTES The nursing notes have been reviewed. PHYSICAL EXAM Vital Signs: 10/26/2016 13:08 BP: 160/95. HR: 61. RR: 18. O2 saturation: 98%. Temp: 98.4 F. Pain level now: 0/10. Appearance: Alert. Eyes: Pupils equal, round and reactive to light. Eyes normal inspection. No dysconjugate gaze. No nystagmus. No pupillary exam. ENT: Ears normal. Neck: Normal inspection. CVS: Normal heart rate and rhythm. Heart sounds normal. Respiratory: No respiratory distress. No respiratory distress. Breath sounds normal. Abdomen: Soft and nontender. Neuro: Oriented X 3. No alteration in mental status. Verbal response is not abnormal. Response to pain is not abnormal. Alert. Mood/affect normal. Speech normal. Cranial nerves normal (as tested) and tested). No cranial nerve deficit. No cerebellar findings. No abnormal finger-nose test. No motor deficit. Sensory deficit present. (to mid/lower aspects of face). Altered sensation to pinprick on the right face. No abnormal Romberg test. (except as noted on sensitivity). PROGRESS AND PROCEDURES Course of Care: neg exam beyond sensory to the right lower aspect of face, otherwise no rash, at this time early sx, and pt needs f/u. Pt is without signs of any acute distress, no signs of cva concerns. Stable, otherwise neg exam. Patient/family counseled. Differential Diagnosis: I considered hypoglycemia, hyperglycemia, drug overdose, niacin deficiency, hypoxia, post-anoxic encephalopathy, ischemic stroke, intracranial bleed, subarachnoid hemorrhage, brain tumor, closed head injury, bacterial meningitis, viral meningitis, brain abscess, hysteria, catatonic state and hypertensive encephalopathy as a possible cause of altered mental status in this patient. This is a partial list of diagnoses considered. Above considerations are based on history, physical exam, past history and social history. Differential diagnosis was discussed with patient and patient's spouse. Disposition: Discharged. CLINICAL IMPRESSION Paresthesia INSTRUCTIONS Do not work for three days. (strict return precautions as discussed). OTC Medications: Take acetaminophen (Tylenol, Datril, etc.) and ibuprofen (Advil, Nuprin, etc.) according to label instructions. Available over the counter. Follow-up: Follow up with your doctor in two days. (Electronically signed by Pamela Barbosa P.A.-C 10/26/2016 14:26)
--- NOTE | 2016-10-26 14:27 | ED MAR SUMMARY ---
..... Medication Administration Record [facility] [address] [place], [place] [id number] Patient: UGO NIXON Visit ID: [id number] 46y, F Weight: 65.7 kg Height/Length: 62 in BMI: 26.5 ALLERGIES: No Known Drug Allergy
--- NOTE | 2016-10-26 14:27 | ED MAR SUMMARY ---
..... Medication Administration Record [facility] [address] [place], [place] [id number] Patient: UGO NIXON Visit ID: [id number] 46y, F Weight: 65.7 kg Height/Length: 62 in BMI: 26.5 ALLERGIES: No Known Drug Allergy
--- NOTE | 2016-10-26 14:27 | ED DISCHARGE INSTRUCTIONS ---
Patient: UGO NIXON General Instructions [facility] VisitID: [id number] [place] [address] 46y, F Registration Date/Time: 10/26/2016 Paresthesia INSTRUCTIONS Do not work for three days. (strict return precautions as discussed). OTC Medications: Take acetaminophen (Tylenol, Datril, etc.) and ibuprofen (Advil, Nuprin, etc.) according to label instructions. Available over the counter. Follow-up: Follow up with your doctor in two days. ADDITIONAL INFORMATION Paraesthesias Paraesthesia refers to a burning or prickling sensation that is sometimes felt in the hands, arms, legs or feet. It can also occur in other parts of the body. It can also feel like tingling or numbness, skin crawling or itching.The sensation is usually painless. Most people have experienced pins and needles. This feeling happens when legs have been crossed for too long and pressure is placed on a nerve. This is a temporary paraesthesia. It quickly goes away once the pressure is relieved. There are many possible causes for chronic paraesthesias. These include such disorders as stroke, herniated disk (pressing on a nerve), trapped nerve in the shoulder, elbow or wrist (such as carpal tunnel syndrome), vitamin deficiencies or even certain medicines. Laboratory tests are needed to make an accurate diagnosis. These tests may include blood tests, X-ray, CT (computerized tomography) scan or a muscle test (electromyography).Depending on the cause, treatment may include physical therapy. Home Care: Do not make any changes to your medicines without advice from your doctor. If vitamins have been prescribed, remember to take them daily at the recommended dose. Because of a decrease in feeling, a numb hand or foot may be more prone to injury. Take care to protect these areas from cuts, bumps, bruises, mckee or other injury. Keep your nails trimmed and wash your hands and feet often. Wear shoes that fit well to avoid pressure points, blisters and ulcers. Look at your hands and feet carefully (including the soles of your feet and between your toes) at least once a week and notify your doctor of any open wounds or signs of infection. Follow Up with your doctor or as advised by our staff. You may need further testing to determine the exact cause of your paraesthesia. [NOTE: If blood tests, X-ray, CT scan or electromyography were done, specialists will review them. You will be notified of any new findings that may affect your care.] Get Prompt Medical Attention if any of the following occur: Numbness or weakness of the face, one arm or one leg Slurred speech, confusion, trouble speaking, walking or seeing Severe headache, fainting spell, dizziness or seizure Chest, arm, neck or upper back pain Loss of bladder or bowel control Open wound with redness, swelling or pus You have been given the following additional information: Paraesthesias Do not work for three days. (Electronically signed by Pamela Barbosa P.A.-C 10/26/2016 14:26)
--- NOTE | 2016-10-26 14:27 | ED MED RECONCILIATION SUMMARY ---
Patient: UGO NIXON Medication Reconciliation Report [facility] VisitID: [id number] [address] [place] [address] 46y, F Registration Date/Time: 10/26/2016 Weight: 65.7 kg Height/Length: 62 in. BMI: 26.5 ALLERGIES: No Known Drug Allergy The patient's Home Medications are listed below: THE FOLLOWING MEDICATIONS NEED TO BE RECONCILED: FLUoxetine HCl Oral L-methylfolate Calcium Oral Losartan Potassium Oral (25 mg) 1/2 tablet, daily ValACYclovir HCl Oral The source(s) of the original Home Medication information: patient The following Medications were given to the patient in the Emergency Department: None. The following Medications were prescribed to the patient: Take acetaminophen (Tylenol, Datril, etc.) and ibuprofen (Advil, Nuprin, etc.) according to label instructions. Available over the counter. -- Pamela Barbosa, PDonnyADonny-C
--- NOTE | 2016-10-26 14:27 | ED MED RECONCILIATION SUMMARY ---
Patient: UGO NIXON Medication Reconciliation Report [facility] VisitID: [id number] [address] [place] [address] 46y, F Registration Date/Time: 10/26/2016 Weight: 65.7 kg Height/Length: 62 in. BMI: 26.5 ALLERGIES: No Known Drug Allergy The patient's Home Medications are listed below: THE FOLLOWING MEDICATIONS NEED TO BE RECONCILED: FLUoxetine HCl Oral L-methylfolate Calcium Oral Losartan Potassium Oral (25 mg) 1/2 tablet, daily ValACYclovir HCl Oral The source(s) of the original Home Medication information: patient The following Medications were given to the patient in the Emergency Department: None. The following Medications were prescribed to the patient: Take acetaminophen (Tylenol, Datril, etc.) and ibuprofen (Advil, Nuprin, etc.) according to label instructions. Available over the counter. -- Pamela Barbosa, PDonnyADonny-C
== END 2016-10-26 13:40 | disposition home or self-care (01) ==
LOC: ED SRH 12:56
DX: R20.9 Unspecified disturbances of skin sensation (principal); I10 Essential (primary) hypertension; E78.5 Hyperlipidemia, unspecified; Z79.899 Other long term (current) drug therapy

== ENCOUNTER 2016-12-11 09:57 | Outpatient (CLI) | payer OTHER ==
--- NOTE | 2016-12-11 11:12 | DIAGNOSTIC IMAGING REPORT ---
PROCEDURE: CT ABDOMEN/PELVIS W/O CONTRAST INDICATION: L FLANK PX W HX OF PRIOR STONE TECHNIQUE: Axial CT images were obtained through the abdomen and pelvis without IV contrast. Coronal and sagittal reformations were created. COMPARISON: 06/29/2015 FINDINGS: Mild wispy medullary nephrocalcinosis, mainly involving the upper pole of the left kidney but subtly seen diffusely. There are three discrete calculi in the left kidney collecting system, two in the midpole and one in the lower pole, the largest measuring 4.5 mm. No hydronephrosis. No hydroureter or ureteral calcifications. Clear lung bases. Normal sized heart. No hiatal hernia. The unenhanced appearance of the liver, gallbladder, adrenal glands, pancreas and spleen is normal. The abdominal aorta is normal in its course and caliber. There are no suspicious calcifications, retroperitoneal adenopathy or masses. The stomach, upper bowel loops, and mesentery are normal. Intact anterior abdominal wall. No free fluid or inflammation. The uterus is surgically absent. The left ovary, anteriorly within the adnexa, is multicystic and measures about 5.0 cm, similar size, position, and morphology compared to the prior study. The right ovary contains an elongated cyst as well as a 3.1 cm cyst. The elongated cyst is also stable in morphology and size compared to the prior study. No other adnexal masses or cysts. No free fluid. No unusual calcifications. The appendix is now surgically absent. Pelvic bowel loops are within normal limits. Sclerotic changes of the sacroiliac joints. Otherwise normal osseous structures. IMPRESSION: 1. Nonobstructing left intrarenal calculi. No distal urinary calcifications or evidence of obstructive uropathy. 2. Medullary nephrocalcinosis, seen bilaterally, but most pronounced in the upper pole left kidney. Consider diagnosis of medullary sponge kidney or distal renal tubular acidosis, or other metabolic disorders. 3. Multicystic ovaries bilaterally, the right increased compared to the prior study, left stable. Consider pelvic ultrasound and/or gynecologic consult if not previously performed. 4. Status post hysterectomy and appendectomy. 5. Findings called to Vicente Torres in the Urgent Care clinic. All CT scans at this facility use dose modulation, iterative reconstruction, and/or weight-based dosing when appropriate to reduce radiation dose to as low as reasonably achievable.
== END 2016-12-11 23:00 ==
LOC: CT SRH 09:57
DX: E83.59 Other disorders of calcium metabolism (principal); N29 Other disorders of kidney and ureter in diseases classified elsewhere; N83.292 Other ovarian cyst, left side; N83.291 Other ovarian cyst, right side

== ENCOUNTER 2016-12-30 10:46 | Outpatient (CLI) | payer OTHER ==
--- NOTE | 2016-12-30 12:15 | DIAGNOSTIC IMAGING REPORT ---
PROCEDURE: US COMPLETE PELVIC W/TRANSVAG INDICATION: PELVIC PAIN TECHNIQUE: Transabdominal and endovaginal pickering scale and color Doppler sonographic images of the female pelvis were obtained. COMPARISON: Pelvic CT 12/11/2016 FINDINGS: TRANSABDOMINAL SCANS: Hysterectomy. Vaginal cuff is normal. No free fluid. There is slight dilation of the left renal collecting system with a stone in the renal pelvis measuring 12 mm. TRANSVAGINAL SCANS: Right ovary is normal measuring 3.4 x 2.8 x 2.6 cm. There is a collapsing cyst that measures 2.4 x 1.9 x 1.8 cm. There is a paraovarian cyst that measures 3.9 x 3.4 x 2.3 cm. The left ovary is normal measuring 3.3 x 3.0 x 1.8 cm there is an elongated this cyst that measures 5.2 x 2.7 x 2 cm. IMPRESSION: 1. Nonobstructing left intrarenal calculi. No distal urinary calcifications or evidence of obstructive uropathy. 2. Multicystic ovaries bilaterally, the right increased compared to the prior study, left stable.
== END 2016-12-30 23:00 | disposition home or self-care (01) ==
LOC: US SRH 10:46
DX: N83.202 Unspecified ovarian cyst, left side (principal); N83.201 Unspecified ovarian cyst, right side